=== PATIENT | female | born 1975 | race Caucasian/White ===

== ENCOUNTER → 2020-08-30 | Outpatient (CLI) | payer BC | LOC: KOH-I 08:48 | DX: E07.9 Disorder of thyroid, unspecified (principal) | CPT/HCPCS: 70360 ==

== ENCOUNTER → 2020-10-27 | Outpatient (CLI) | payer BC | LOC: KOH-I 10-13 14:30 | DX: M54.2 Cervicalgia (principal) | CPT/HCPCS: 76536 ==

== ENCOUNTER → 2021-01-12 | Outpatient (CLI) | payer BC | LOC: HEART 5 01-07 08:00 | DX: R07.9 Chest pain, unspecified (principal); R00.2 Palpitations ==

== ENCOUNTER → 2021-03-17 | Outpatient (CLI) | payer BC | LOC: HEART 5 08:20 | DX: R07.9 Chest pain, unspecified (principal) | CPT/HCPCS: 78452; A9502 ==

== ENCOUNTER → 2021-11-23 | Outpatient (CLI) | payer BC | LOC: KOH-I 09:44 | DX: R07.9 Chest pain, unspecified (principal) | CPT/HCPCS: 71046 ==